=== PATIENT | female | born 1970 | race Caucasian/White ===

== ENCOUNTER 2018-06-05 18:56 | Emergency (ER) | payer OTHER ==
[~2018-06-05] VITALS: Ht 165.1 cm; Wt 91.2 kg
[~2018-06-05 18:56] MED LIST: ACTOS30 MG PO; APPLE CIDER VI300 MG PO; B-12 DOTS500 MCG PO; CINNAMON500 MG PO; CLINDAMYCIN HC300 MG PO; CYCLOBENZAPRINE5 MG PO; CYMBALTA30 MG PO; CYMBALTA60 MG PO; FIBER-TABS625 MG PO; FIBER1 GM PO; GINGER250 MG PO; GLIMEPIRIDE2 MG PO; GLUCOSAMINE1000 MG PO; LANTUS100 UNITS/ SUB-Q; LEVAQUIN500 MG PO; LISINOPRIL10 MG PO; MULTI VITAMIN1 EACH PO; NORCO 5-325 TA1 EACH PO; PLAVIX75 MG PO; TAMIFLU75 MG PO; TURMERIC500 MG PO; VALACYCLOVIR1000 MG PO; VITAMIN D1000 UNI1 PO; VITAMIN D5000 UNIT PO; ZYRTEC10 MG PO
[2018-06-05] MEDS ORDERED: ZYRTEC10 MG PO (20:53)
[2018-06-05] MEDS ORDERED: KEFLEX500 MG PO (21:11)
== END 2018-06-05 21:50 | disposition home or self-care (01) ==
LOC: ED 18:56
DX: L03.811 Cellulitis of head [any part, except face] (principal); L02.811 Cutaneous abscess of head [any part, except face]; E11.9 Type 2 diabetes mellitus without complications; F32.9 Major depressive disorder, single episode, unspecified; Z88.2 Allergy status to sulfonamides; Z88.6 Allergy status to analgesic agent; Z88.1 Allergy status to other antibiotic agents; Z88.7 Allergy status to serum and vaccine; Z79.899 Other long term (current) drug therapy; Z79.84 Long term (current) use of oral hypoglycemic drugs
CPT/HCPCS: 96372; 99283; J0696

== ENCOUNTER 2019-08-30 22:23 | Emergency (ER) | payer OTHER ==
[~2019-08-30] VITALS: Ht 165.1 cm; Wt 89.8 kg
[~2019-08-30 22:23] MED LIST changes: +KEFLEX500 MG PO
[2019-08-30] MEDS ORDERED: NORCO 5-325 TA1 EACH PO (23:07)
[2019-08-30] MEDS ORDERED: CLINDAMYCIN HC300 MG PO (23:07)
== END 2019-08-30 23:24 | disposition home or self-care (01) ==
LOC: ED 22:23
DX: L02.214 Cutaneous abscess of groin (principal); E11.9 Type 2 diabetes mellitus without complications; F32.9 Major depressive disorder, single episode, unspecified; Z88.2 Allergy status to sulfonamides; Z88.6 Allergy status to analgesic agent; Z88.1 Allergy status to other antibiotic agents; Z79.899 Other long term (current) drug therapy
CPT/HCPCS: 10060; 99283-25

== ENCOUNTER 2019-09-06 12:08 | Emergency (ER) | payer OTHER ==
[~2019-09-06] VITALS: Ht 165.1 cm; Wt 89.8 kg
--- OUTSIDE RECORDS SUMMARY | 2019-09-06 12:12 | XMS ---
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 E.D. VISIT COUNT (12 MO.) 2 [facility] TOTAL 2 NOTE: Visits indicate total known visits. ED/UCC VISIT TRACKING (12 MO.) 09/06/2019 12:09 [facility] [place] TYPE: Emergency COMPLAINT: - HIGH BLOOD SUGAR, ABD WOUND 08/30/2019 22:23 [facility] [place] TYPE: Emergency COMPLAINT: - GROIN PAIN DIAGNOSES: - Allergy status to sulfonamides status - Other longterm (current) drug therapy - 1 Type 2 diabetes mellitus without complications - Major depressive disorder, single episode, unspecified - Allergy status to analgesic agent status - Cutaneous abscess of groin - Allergy status to other antibiotic agents status INPATIENT VISIT TRACKING (12 MO.) No inpatient visits to display in this time frame [email or web address]
[2019-09-06] MEDS ORDERED: ACTOS15 MG PO (13:21)
== END 2019-09-06 13:44 | disposition home or self-care (01) ==
LOC: ED 12:08
DX: E11.65 Type 2 diabetes mellitus with hyperglycemia (principal); L02.415 Cutaneous abscess of right lower limb; E11.9 Type 2 diabetes mellitus without complications; F32.9 Major depressive disorder, single episode, unspecified; Z88.2 Allergy status to sulfonamides; Z88.6 Allergy status to analgesic agent; Z88.1 Allergy status to other antibiotic agents; Z79.899 Other long term (current) drug therapy
CPT/HCPCS: 99282

== ENCOUNTER 2019-09-30 11:52 | Emergency (ER) | payer OTHER ==
[~2019-09-30] VITALS: Ht 165.1 cm; Wt 88.0 kg
[~2019-09-30 11:52] MED LIST changes: +ACTOS15 MG PO
--- OUTSIDE RECORDS SUMMARY | 2019-09-30 11:56 | XMS ---
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 No recent Security Events currently on file CRITERIA MET - [facility] - Has Care Guidelines - [facility] - 2 Visits in 30 Days CARE PROVIDERS ONOFRE POWERS [facility] 09/08/2019-Current PHONE: Unknown Rose Ritter PA-C Treatment Current PHONE: Unknown Guidelines [facility] Date: 09/05/2019 Care Coordination: Receives mental health services with [facility].\T\nbsp; Please contact [facility] for any mental health concerns.\T\nbsp; [place] [phone]\ T\nbsp; [place]: [phone]. E.D. VISIT COUNT (12 MO.) [address] [facility] TOTAL 3 NOTE: Visits indicate total known visits. ED/UCC VISIT TRACKING (12 MO.) 09/30/2019 11:53 [facility] [place] TYPE: Emergency COMPLAINT: - ELEVATED BLOOD SUGAR, UTI 09/06/2019 12:09 [facility] [place] TYPE: Emergency COMPLAINT: - HIGH BLOOD SUGAR, ABD WOUND DIAGNOSES: - Cutaneous abscess of right lower limb - Other assisted (current) drug therapy - 1 Type 2 diabetes mellitus without complications - Allergy status to other antibiotic agents status - 1 Type 2 diabetes mellitus with hyperglycemia - Allergy status to analgesic agent status - Allergy status to sulfonamides status - Major depressive disorder, single episode, unspecified 08/30/2019 22:[address] [facility] [place] TYPE: Emergency COMPLAINT: - GROIN PAIN DIAGNOSES: - Allergy status to sulfonamides status - Other assisted (current) drug therapy - 1 Type 2 diabetes mellitus without complications - Major depressive disorder, single episode, unspecified - Allergy status to analgesic agent status - Cutaneous abscess of groin - Allergy status to other antibiotic agents status INPATIENT VISIT TRACKING (12 MO.) No inpatient visits to display in this time frame [email or web address]
[2019-09-30] MEDS ORDERED: CIPRO500 MG PO (16:03)
== END 2019-09-30 16:15 | disposition home or self-care (01) ==
LOC: ED 11:52
DX: N39.0 Urinary tract infection, site not specified (principal); E11.9 Type 2 diabetes mellitus without complications; F32.9 Major depressive disorder, single episode, unspecified; Z88.2 Allergy status to sulfonamides; Z88.6 Allergy status to analgesic agent; Z88.1 Allergy status to other antibiotic agents; Z79.899 Other long term (current) drug therapy
CPT/HCPCS: 80053; 82010; 82803; 85025; 99283

== ENCOUNTER 2021-09-05 19:31 | Emergency (ER) | payer OTHER ==
[~2021-09-05] VITALS: Ht 165.1 cm; Wt 88.0 kg
[~2021-09-05 19:31] MED LIST changes: +CIPRO500 MG PO
[2021-09-05] MEDS ORDERED: CHOLESTYRAMINE P4 GM PO (19:56)
[2021-09-05] MEDS ORDERED: JARDIANCE10 MG PO (19:57)
[2021-09-05] MEDS ORDERED: JANUVIA25 MG PO (19:58)
[2021-09-05] MEDS ORDERED: DICLOFENAC SODI75 MG PO (22:08)
== END 2021-09-05 22:42 | disposition home or self-care (01) ==
LOC: ED 19:31
DX: S76.012A Strain of muscle, fascia and tendon of left hip, initial encounter (principal); W01.10XA Fall on same level from slipping, tripping and stumbling with subsequent striking against unspecified object, initial encounter; E11.9 Type 2 diabetes mellitus without complications; Z88.2 Allergy status to sulfonamides; Z88.6 Allergy status to analgesic agent; Z88.1 Allergy status to other antibiotic agents; Z79.899 Other long term (current) drug therapy
CPT/HCPCS: 73502; 99283-25

== ENCOUNTER 2021-11-09 14:17 | Inpatient (IN) | payer OTHER ==
[~2021-11-09] VITALS: Ht 165.1 cm; Wt 98.5 kg
[~2021-11-09 14:17] MED LIST changes: +CHOLESTYRAMINE P4 GM PO; +DICLOFENAC SODI75 MG PO; +JANUVIA25 MG PO; +JARDIANCE10 MG PO
--- OUTSIDE RECORDS SUMMARY | 2021-11-09 14:24 | XMS ---
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 09/08/2019-Current PHONE: Unknown Care Guidelines exist for the following facilities: [facility] ( 09/05/2019 ) Care History Medical/Surgical 10/01/2019 [facility] - Patient is currently established with [facility]. If patient is seen in the ED during business hours. Please contact CHWs at [facility]. Care Recommendation: If this patient has had 5 or more Emergency Department visits in the last 12 months.\T\nbsp; Patient will require education on the scope and purpose of the ED as an acute care provider not a Primary Care Provider and should not be utilized for chronic conditions.\T\nbsp; These are guidelines and the provider should exercise clinical judgment when providing care. E.D. VISIT COUNT (12 MO.) 2 [facility] TOTAL 2 NOTE: Visits indicate total known visits. 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
--- NOTE | 2021-11-09 19:30 | NUR ---
SHIFT REPORT RECEIVED FROM SAMMY OLEA. PT RESTING IN BED, IV FLUIDS INFUSING PER ORDER. SNACK PROVIDED. NO OTHER NEEDS. CALL LIGHT IN REACH.
--- NOTE | 2021-11-09 20:35 | NUR ---
PATIENT CALLED ABOUT IV PUMP BEEPING. NURSE WAS NOTIFIED.
--- NOTE | 2021-11-09 21:00 | NUR ---
ASSESSMNET, VS AND I&O COMPLETED. GCS 15, A&O X4. PT FRUSTRATED TO BE IN THE HOSPITAL AND TO HAVE TESTED POSITIVE FOR COVID, THERAPUTIC COMMUNICATION PROVIDED. LUNGS CLEAR, HEART TONES REGULAR. ABD SOFT, NONTENDER, BOWEL TONES ACTIVE. CMS INTACT IN UPPER EXTREMITIES AND SCATTERED SCRATCHES NOTED ON BOTH FOREARMS. BLE HAVE CHRONIC NUMBNESS AND TINGLING. RLE HAS GENERALIZED EDEMA FROM KNEE JULIAN AND RIGHT GREAT TO IS RED, SWOLLEN AND PAINFUL, SCANT SEROUS DRAINAGE. IV WNL, CDI, FLUSHED WELL, SCHEDULED IV FLUIDS PROVIDED. SCHEDULED MEDS PROVIDED. PAIN 2/10 IN RIGHT FOOT, DENIES NEED FOR PAIN MED AT THIS TIME. FOOT ELEVATED.SNACKS PROVIDED. NO OTHER NEEDS AT THIS TIME. CALL LIGHT IN REACH.
--- NOTE | 2021-11-09 23:00 | NUR ---
PT RESTING IN BED, SNACK PROVIDED. NO OTHER NEEDS. CALL LIGHT IN REACH.
--- NOTE | 2021-11-10 01:00 | NUR ---
PT RESTING IN BED, WATCHING TV. NO NEEDS AT THIS TIME. CALL LIGHT IN REACH.
--- NOTE | 2021-11-10 02:46 | NUR ---
SCHEDULED MED PROVIDED. PT DENIES PAIN IN RIGHT FOOT AT THIS TIME. RIGHT GREAT TOE HAS PURULENT DRAINAGE WITH ODOR, COVERED WITH GAUZE, COBAN AND SOCK FOR SAFETY. ASSESSMENT COMPLETED. 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 NO OTHER NEEDS. CALL LIGHT IN REACH.
--- NOTE | 2021-11-10 05:00 | NUR ---
PT RESTING IN BED, EYES CLOSED. RR EVEN, UNLABORED. CALL LIGHT IN REACH.
--- NOTE | 2021-11-10 06:22 | NUR ---
VS AND I&O COMPLETED. PT IS DUE TO VOID BUT UOS, EDUCATION PROVIDED. NO OTHER NEEDS AT THIS TIME. CALL LIGHT IN REACH.
--- NOTE | 2021-11-10 09:34 | NUR ---
Patient awake, alert and oriented x4. Patient verbalized she is very tired and wants to be left alone so she can sleep. Patient irritable with cares. Morning medications admin per provider order. Patient drank large cup of orange juice but declined her breakfast. Nap sign placed on door at this time. Patient denies current needs.
--- NOTE | 2021-11-10 10:32 | NUR ---
PATIENT REFUSED BREAKFAST, REQUESTS TO CONTINUE SLEEPING. I&OS CHARTED.
[2021-11-10] MEDS ORDERED: TRULICITY3 MG/0.5 M SUB-Q (11:42)
--- NOTE | 2021-11-10 12:54 | NUR ---
Patient assisted to restroom at this time. Patient denies pain and or needs at this time. Fresh water provided. Personal supplies and call light within reach.
--- NOTE | 2021-11-10 13:00 | NUR ---
Attempted to see pt, she declines a visit. Will see tomorrow.
--- NOTE | 2021-11-10 13:44 | NUR ---
PATIENT REMAINS SLEEPING. LUNCH IS SITTING ON BEDSIDE TABLE. VITALS AND I&OS CHARTED.
--- NOTE | 2021-11-10 14:29 | NUR ---
Patient resting in bed, eyes closed, respirations even and non labored. Patient has no distress. IV fluids infusing per provider order. No current needs. Personal supplies and call light within reach.
--- NOTE | 2021-11-10 17:00 | NUR ---
Patient awake, pleasant with this RN. 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 Patient reports her pain is tolerable. RLE elevated at this time. Dressing to right great toe is CDI, scant sarosang drainage noted. IV patent, fluids infusing per provider order. No current needs.
--- NOTE | 2021-11-10 18:07 | NUR ---
MED REC COMPLETE
--- NOTE | 2021-11-10 19:30 | NUR ---
SHIFT REPORT RECEIVED FROM KHARI OLEA. PT RESTING IN BED, WATCHING TV. IV FLUIDS INFUSING PER ORDERS. SNACK PROVIDED. NO OTHER NEEDS. CALL LIGHT IN REACH.
--- NOTE | 2021-11-10 21:30 | NUR ---
ASSESSMENT, VS AND I&O COMPLETED. GCS 15, A&O X4. LUNGS CLEAR, HEART TONES REGULAR. ABD SOFT, NONTENDER, BOWEL TONES ACTIVE. IV WNL, CDI, FLUSHED WELL. IV FLUIDS INFUSING PER ORDER. CMS INTACT IN UPPER EXTREMITIES. NUMBNESS AND TINGLING IN FEET, MOTOR AND PULSE INTACT. RIGHT GREAT TOE DRESSING WNL, CDI. PT DENIES PAIN. SCHEDULED MEDS PROVIDED. SNACK PROVIDED. NO OOTHER NEEDS. CALL LIGHT IN REACH.
--- NOTE | 2021-11-11 | NUR ---
PT RESTING IN BED. NO NEEDS AT THIS TIME. IV FLUIDS INFUSING PER ORDER. CALL LIGHT IN REACH.
--- NOTE | 2021-11-11 02:35 | NUR ---
ASSESSMENT COMPLETED. SCHEDULED MED PROVIDED. PT DENEIS PAIN. RIGHT GREAT TOE DRESSING CDI. IV FLUIDS INFUSING PER ORDER, IV WNL. PT GOES BACK TO SLEEP QUICKLY. CALL LIGHT IN REACH.
--- NOTE | 2021-11-11 04:00 | NUR ---
PT RESTING IN BED, EYES CLOSED. RR EVEN, UNLABORED. CALL LIGHT IN REACH.
--- NOTE | 2021-11-11 06:06 | NUR ---
DRESSING CHANGED ON LEFT GREAT TOE, WOUND IRRIGATED WITH 10ML OF NS AND CLEANSED PER DR MAX INSTRUCTION FROM 1999 DRESSING CHANGE ON 11/10/21. WOUND DRESSED WITH IODOSORB, GAUZE, KERLIX, AND COBAN. PT TOLERATED WELL, DENIED ANY PAIN DURING DRESSING CHANGE
--- NOTE | 2021-11-11 12:30 | NUR ---
Spoke with pt and she states she lives in a mobile home with her daught er. Pt drives and complete household tasks. She denies need or use of any DME. Her need at this time is water in her home. States she has not been able to get anyone to fix a broken pipe [place]. Discussed I will put in a referral to [facility] for a needs assessment and also to our CHW, Marine Garcia. Pt had covid 6 weeks ago, but denies any issues now. Plans on dc to home. Daughter can assist her.
--- NOTE | 2021-11-11 13:10 | NUR ---
Patient doing well at this time, no distress. Right leg elevated at this time. Dressing to right great toe is CDI. No current needs at this time. Personal supplies and call light within reach.
--- NOTE | 2021-11-11 19:10 | NUR ---
BEDSIDE REPORT FROM MARYLU OLEA, PT RESTING IN BED NO DISTRESS NOTED. PT REPORTS NOT HAVING ANY NEEDS AT THIS TIME.
--- NOTE | 2021-11-11 20:58 | NUR ---
PT UP TO BATHROOM TO VOID INDEPENDENTLY, SHE HAS NO COMPLAINT OF PAIN OR NAUSEA. NO DISTRESS.
--- NOTE | 2021-11-12 00:35 | NUR ---
PT PROVIDED EYE DROPS PER NIO FOR DRY EYES, SHE REQUESTED, PT SITTING UP IN BED WATCHING TV, SHE HAS NO COMPLAINTS OR REQUESTS AT THIS TIME.
--- NOTE | 2021-11-12 02:14 | NUR ---
PT RESTING IN BED, WATCHING TV, REPORTS NO NEEDS AT THIS TIME.
--- NOTE | 2021-11-12 03:53 | NUR ---
PT ALERT AND ORIENTED WATCHING TV, ALERT AND ORIENTED, NO COMPLAINTS OR CONCERNS AT THIS TIME.
--- NOTE | 2021-11-12 04:26 | NUR ---
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 SHE HAS NOT REPORTED PAIN OR NAUSEA THIS SHIFT. DRESSING PLACED BY TO RIGHT GREAT TOE, CLEAN DRY INTACT, THIS WAS PLACED LATE IN THE AFTERNOON 11/11/21, GAVE ORDERS TO NORA OLEA THAT STARTING TODAY 11/12/21 HE WANTS DRESSING CHANGED BID. PT IS INDEPENDENT TO BATHROOM, S/L OTHER THAN ABX. PT COOPERATIVE WITH PLAN OF CARE.
--- NOTE | 2021-11-12 07:24 | NUR ---
Patient sleeping, eyes closed, respirations even and non labored. Patient has no distress at this time.
--- NOTE | 2021-11-12 09:49 | NUR ---
In for morning cares. Patient resting, easily awoke with verbal stimuli. Patient reports she is tired this morning. Right foot elevated on pillows. Dressing to right toe is CDI. IV abx started per provider order. Patient denies needs. Encouraged patient to consider a shower later today before her foot dressing change, pt states she will let staff know later this afternoon. 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
--- NOTE | 2021-11-12 14:45 | NUR ---
Right great toe dressing change done at this time per provider order. Wound flushed with normal saline until clear, moderate amount of foul-smelling purulent drainage from wound. Iodisorb applied to gauze then placed over wound site. Patient reports she cannot feel anything in her foot during dressing change. Patient tolerated well. RLE elevated at this time.
--- NOTE | 2021-11-12 19:34 | NUR ---
BEDSIDE REPORT FROM MARYLU OLEA, PT ALERT AND ORIETNED, SITTING UP WATCHING TV , NO DISTRESS NOTED, NO REPORT OF PAIN OR NAUSEA. DISCUSSED PLAN TO CHANGE DRESSING LATER THIS SHIFT, SHE REPORTS SHE WILL BE UP MOST OF SHIFT SHE IS A NIGHT SHIFTER BY NATURE AND STAYS IN HER ROUTINE.
--- NOTE | 2021-11-12 21:18 | NUR ---
PT UP TO BATHROOM, ALERT AND ORIENTED, UP TO USE BATHROOM TO VOID, ASSESSMENT, HS MEDS COMPLETE, V/S STABLE. DRESSING INTACT AT RIGHT GREAT TOE. WILL CHANGE DRESSING LATER IN SHIFT TO BALANCE IH DAYSHIFT DRESSING CHANGE. PT REPORTS NO PAIN OR NAUSEA.
--- NOTE | 2021-11-13 01:03 | NUR ---
PT AGREES TO TAKE SHOWER, AFTER HER CURRENT MOVIE COMPLETE WILL REMOVE DRESSING BEFORE AND REPLACE AFTER. SHOWER SET UP WITH SIT DOWN SHOWER CHAIR. PT S/L NOW.
--- NOTE | 2021-11-13 02:54 | NUR ---
PT COMPLETED SHOWERING, RIGHT GREAT TOE, COMPRESSED OUT DRAINAGE, THEN LAVAGE WITH SALINE AND COMPRESSED X10 UNTIL DRAINAGE CLEAR, THEN REDRESSED PER ORDERS, SEE WOUND ASSESSMENT FOR DETAILS. WOUND IS IMPROVING. PT TOLERATED WELL. FULL BED CHANGE OF LINENS, THEN PT BACK TO BED AND RIGHT FOOT ELEVATED ON TWO PILLOWS.
--- NOTE | 2021-11-13 04:27 | NUR ---
PT REPORTS SHE HAS SEVERE REACTION TO ALOE VERA CAUSES SEVERE SKIN BLISTERS.
--- NOTE | 2021-11-13 07:23 | NUR ---
Report received from Lizet OLEA. Pt resting in bed with eyes closed, respirations even and unlabored. No needs identified at this time. Will continue plan of care.
--- NOTE | 2021-11-13 08:25 | NUR ---
Rounded on patient with Dr Peña who is changing the wound dressing. LEFTY George at the bedside administering medication and SS insulin. Pt irritable when asked questions at this time.
--- NOTE | 2021-11-13 13:23 | NUR ---
Pt ambulates to bathroom for void and BM. IV cefepime infusing WNL. Pt agreeable, lab in to draw for vanco trough. VSS, I/Os charted.
--- NOTE | 2021-11-13 17:27 | NUR ---
Scheduled IV ABX and PO meds administered. Pt resting in bed using phone. She reports no pain, no nausea. no needs. Call light in reach
--- NOTE | 2021-11-13 19:20 | NUR ---
BEDSIDE REPORT FROM MICHAEL OLEA, PT RESTING IN BED ALERT AND ORIENTED, SHE REPORTS NO PAIN OR NAUSEA, NO CONCERNS OR REQUESTS AT THIS TIME.
--- NOTE | 2021-11-13 20:28 | NUR ---
PT RESTING IN BED ON CELL PHONE, NO DISTRESS APPARTENT. PT ALERT AND ORIENTED.
--- NOTE | 2021-11-13 22:30 | NUR ---
PT CALLED TO REPORT IV PUMP ALARMING, THIS RN INTO ROOM TO ASSESS, DISTAL OCCLUSION, IV SITE WNL, RESTARTED ABX, CHANGED RIGHT FOOT DRESSING PER ORDERS. SEE ASSESSMENT FOR DETAILS. PT TOLERATED WELL, SHE REPORTS SHE HAS NO FEELING AT HER RIGHT GREAT TOE. PT REQUESTED A NIGHT SNACK, AN APPLE WAS AVAILABLE IN PT [place]ID[place], PROVIDED TO PT. NO OTHER REQUESTS AT THIS TIME.
--- NOTE | 2021-11-14 02:40 | NUR ---
ROUNDING INTO PT ROOM, WITH SCHEDULED ABX, PT AWAKE RESTING IN BED WITH LIGHTS OFF, SHE SAID "I JUST CANT GET COMFORTABLE" SHE VERBALIZED FRUSTRATION WITH TOSSING AND TURNING, SHE ASKED IF SHE COULD HAVE HER SOCKS OFF, SOCKS REMOVE. TALKED WITH PT ABOUT NOT GETTING OUT OF BED WITHOUT SOCKS DUE TO SLIPPING HAZARD. PT REGALED THIS RN WITH MULTIPLE JOKES, PT VERBALIZED NO FURTHER NEEDS AT THIS TIME.
--- NOTE | 2021-11-14 04:35 | NUR ---
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
--- NOTE | 2021-11-14 07:26 | NUR ---
Bedside shift report completed. Patient resting comfortably. Pain level per the patient is at a 2 out of 10. NGT has put out approximately 100 ml since 629. Ice chips for comfort at bedside.
--- NOTE | 2021-11-14 08:58 | NUR ---
AM medications being given, patient up to the bathroom. IV flushed and antibiotic infusing.
--- NOTE | 2021-11-14 09:16 | NUR ---
Patient in bed, conversing about the past. Pain level of a 4 out of 10, scheduled pain medication given. Assessment completed
--- NOTE | 2021-11-14 10:21 | NUR ---
Patient attempting to rest, no medications due till this afternoon. PATTERN SETTER getting vital signs to try and allow patient a more consistency with her sleep. 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
[2021-11-14] MEDS ORDERED: AVIDOXY100 MG PO (11:16)
[2021-11-14] MEDS ORDERED: CEPHALEXIN500 MG PO (11:17)
--- NOTE | 2021-11-14 11:50 | NUR ---
Spoke with Josefina. She denies needs. Updated I spoke with CHW. She is attempting to find assistance through flex funds and through [facility].
--- NOTE | 2021-11-14 12:15 | NUR ---
patient discharge instructions completed, discharge instructions discussed with the patient, questions answered to the best of my ability. She verbalizes understanding. IV access removed prior to discharge
== END 2021-11-14 12:35 | disposition home or self-care (01) | DRG 637 ==
LOC: ED 14:17 → MS 17:58
PROVIDERS: ADMIT Internal Medicine; ATTEND Internal Medicine
DX: E11.69 Type 2 diabetes mellitus with other specified complication (principal); U07.1 COVID-19; M86.171 Other acute osteomyelitis, right ankle and foot; F32.A Depression, unspecified; M79.7 Fibromyalgia; Z88.2 Allergy status to sulfonamides; Z88.1 Allergy status to other antibiotic agents; Z88.8 Allergy status to other drugs, medicaments and biological substances; Z90.49 Acquired absence of other specified parts of digestive tract; L97.519 Non-pressure chronic ulcer of other part of right foot with unspecified severity; F32.9 Major depressive disorder, single episode, unspecified; Z98.890 Other specified postprocedural states; Z98.42 Cataract extraction status, left eye; E11.621 Type 2 diabetes mellitus with foot ulcer; Z98.41 Cataract extraction status, right eye; Z79.899 Other long term (current) drug therapy; G89.29 Other chronic pain; E11.628 Type 2 diabetes mellitus with other skin complications; L03.031 Cellulitis of right toe
CPT/HCPCS: 36415; 73660; 80048; 80053; 80202; 83036; 83735; 85025; 86140; 99284-25; A9270; C9803; J0692; J1650; J1815; J3370; J7030; J7060; U0003

== ENCOUNTER 2024-05-09 19:13 | Emergency (ER) | payer OTHER ==
[~2024-05-09] VITALS: Ht 165.1 cm; Wt 98.9 kg
[~2024-05-09 19:13] MED LIST changes: +AVIDOXY100 MG PO; +CEPHALEXIN500 MG PO; +LEVOFLOXACIN500 MG PO; +TRULICITY0.75 MG/0. SUB-Q; +TRULICITY3 MG/0.5 M SUB-Q
[2024-05-09] MEDS ORDERED: IBUPROFEN 800 MG TAB PO ONE (19:45)
[2024-05-09 20:28] VITALS: BP 166/79
== END 2024-05-09 20:39 | disposition home or self-care (01) ==
LOC: ED 19:13
DX: S70.01XA Contusion of right hip, initial encounter (principal); S60.212A Contusion of left wrist, initial encounter; S40.012A Contusion of left shoulder, initial encounter; S40.022A Contusion of left upper arm, initial encounter; V49.49XA Driver injured in collision with other motor vehicles in traffic accident, initial encounter; E11.9 Type 2 diabetes mellitus without complications; Z91.048 Other nonmedicinal substance allergy status; Z88.2 Allergy status to sulfonamides; Z88.6 Allergy status to analgesic agent; Z88.1 Allergy status to other antibiotic agents; Z88.7 Allergy status to serum and vaccine; Z79.85 Long-term (current) use of injectable non-insulin antidiabetic drugs
CPT/HCPCS: 71045; 73030; 73110; 73502; 99284-25; A9270

== ENCOUNTER 2024-10-11 22:52 | Emergency (ER) | payer OTHER ==
[~2024-10-11] VITALS: Ht 165.1 cm; Wt 96.2 kg
[2024-10-11] MEDS ORDERED: TRAMADOL HCL 50 MG HOME.PACK PO ONE (23:15)
[2024-10-11] MEDS ORDERED: FLUCONAZOLE 200 MG TAB PO ONE (23:15)
[2024-10-11] MEDS ORDERED: NYSTATIN15 G1 TOP (23:17)
[2024-10-11] MEDS ORDERED: FLUCONAZOLE200 MG PO (23:17)
[2024-10-11] MEDS ORDERED: ANTI-FUNGAL POW71 GM TOP (23:17)
[2024-10-11 23:37] VITALS: BP 152/72
== END 2024-10-11 23:38 | disposition home or self-care (01) ==
LOC: ED 22:52
DX: B37.2 Candidiasis of skin and nail (principal); E11.9 Type 2 diabetes mellitus without complications; Z88.2 Allergy status to sulfonamides; Z88.6 Allergy status to analgesic agent; Z88.1 Allergy status to other antibiotic agents; Z88.7 Allergy status to serum and vaccine; Z91.048 Other nonmedicinal substance allergy status
CPT/HCPCS: 99282; A9270

== ENCOUNTER 2024-12-22 21:21 | Emergency (ER) | payer OTHER ==
[~2024-12-22] VITALS: Ht 165.1 cm; Wt 101.0 kg
[~2024-12-22 21:21] MED LIST changes: +ANTI-FUNGAL POW71 GM TOP; +FLUCONAZOLE200 MG PO; +NYSTATIN15 G1 TOP
[2024-12-22] MEDS ORDERED: KETOROLAC TROMETHAMINE 30 MG/ML VIAL IV ONE (23:15)
[2024-12-22 23:33] LABS: ALBUMIN 2.6 g/dL (3.4-5.0); ALBUMIN/GLOBULIN RATIO 0.58 (1.1-2.4); ANION GAP 10.8 (7-21); BILIRUBIN, TOTAL 0.3 mg/dL (0.2-1.0); BUN/CREATININE RATIO 16.96 (6.0-28.6); CREATININE, SERUM 1.12 mg/dL (0.55-1.02); POTASSIUM 3.8 mmol/L (3.5-5.1); PROTEIN, TOTAL 7.1 g/dL (6.4-8.2)
[2024-12-23 00:13] LABS: BASOPHILS 0.6 % (0-2); EOSINOPHILS 1.7 % (0-6); HEMATOCRIT 32.5 % (35.0-50.0); HEMOGLOBIN 11.1 g/dL (12.0-18.0); LYMPHOCYTES 23.9 % (24-44); MCH 28.9 (27-36); MCHC 34.1 g/dl (30-36); MCV 84.9 fl (81-99); MONOCYTES 5.9 % (0-12); NEUTROPHILS 67.9 % (39-80); PLATELET COUNT 270 K/uL (140-440); RBC 3.83 M/ul (4.3-5.7); RDW 14.8 (10.5-15.0)
[2024-12-23] MEDS ORDERED: ACETAMINOPHEN 500 MG TAB PO ONE (01:30)
[2024-12-23] MEDS ORDERED: HYDROCODONE/ACETA 7.5/325 TAB PO ONE (01:45)
[2024-12-23] MEDS ORDERED: DEXAMETHASONE SOD PHOS 10 MG/ML VIAL IM ONE (02:15)
[2024-12-23] MEDS ORDERED: DOXYCYCLINE HY100 MG PO (02:49)
[2024-12-23] MEDS ORDERED: DOXYCYCLINE HYCLATE 100 MG CAP PO ONE (03:00)
[2024-12-23] MEDS ORDERED: HYDROCODONE BIT/ACETAMINOPHEN 5/325 MG 1 TAB HOME.PACK PO ONE (03:00)
[2024-12-23 03:04] LABS: BILIRUBIN, URINE NEGATIVE (negative); BLOOD/HGB, URINE SMALL (Negative); KETONE, URINE NEGATIVE (Negative); LEUK ESTERASE, URINE NEGATIVE (negative); NITRITE, URINE NEGATIVE (negative)
[2024-12-23 03:09] LABS: EPITHELIAL CELLS, URINE SQUAMOUS 1+ /lpf (0-1+)
[2024-12-23 03:10] LABS: BACTERIA, URINE RARE /hpf (negative); CASTS, URINE NONE SEEN \\lpf; COLLECTION TYPE, URINE CLEAN CATCH; CRYSTALS, URINE NONE SEEN (0-1+); REFLEX CULTURE, URINE No (No); WHITE BLOOD CELLS, URINE 0-1 /HPF (0-5)
[2024-12-23 03:19] VITALS: BP 178/93
--- NOTE | 2024-12-24 10:56 | EKG ---
[facility] [address] [place], [place] [address] Signed Normal sinus rhythm Septal infarct (cited on or before 23-DEC-2024) Abnormal ECG When compared with ECG of 08-MAR-2023 07:49, Questionable change in QRS axis Confirmed by Justa Frausto DO ([id number]) on 12/24/2024 10:55:55 AM Electronically Signed By: JUSTA FRAUSTO DO 12/24/24 1056 PATIENT NAME: ELVIS CHO Electrocardiogram DATE OF : 74 PHYSICIAN: JUSTA FRAUSTO DO REPORT #: [id number] REPORT IS CONFIDENTIAL AND NOT TO BE RELEASED WITHOUT AUTHORIZATION
== END 2024-12-23 03:12 | disposition home or self-care (01) ==
LOC: ED 21:21
PROVIDERS: Internal Medicine
DX: L02.214 Cutaneous abscess of groin (principal); M75.81 Other shoulder lesions, right shoulder; E11.9 Type 2 diabetes mellitus without complications; Z91.09 Other allergy status, other than to drugs and biological substances; Z88.2 Allergy status to sulfonamides; Z88.1 Allergy status to other antibiotic agents; Z88.7 Allergy status to serum and vaccine
CPT/HCPCS: 10061; 36415; 71045; 73030; 76882; 80053; 81001; 85025; 85379; 87070; 87075; 87205; 93005; 93010; 99284-25; A9270; J1100; J1885

== ENCOUNTER 2024-12-26 22:09 | Emergency (ER) | payer OTHER ==
[~2024-12-26] VITALS: Ht 165.1 cm; Wt 101.0 kg
[~2024-12-26 22:09] MED LIST changes: +DOXYCYCLINE HY100 MG PO
[2024-12-26 23:00] VITALS: BP 168/91
== END 2024-12-26 23:01 | disposition home or self-care (01) ==
LOC: ED 22:09
DX: Z48.817 Encounter for surgical aftercare following surgery on the skin and subcutaneous tissue (principal); E11.9 Type 2 diabetes mellitus without complications; Z88.2 Allergy status to sulfonamides; Z88.1 Allergy status to other antibiotic agents; Z88.8 Allergy status to other drugs, medicaments and biological substances; Z88.7 Allergy status to serum and vaccine
CPT/HCPCS: 99283